=== PATIENT | male | born 1960 | race African-American/Black ===

== ENCOUNTER 2016-12-28 07:39 | Day surgery (SDC) | payer MEDICAID ==
[2016-12-17 11:08] VITALS: BP 119/87
[~2016-12-28] VITALS: Ht 185.4 cm; Wt 113.0 kg
[~2016-12-28 07:39] MED LIST: ALPR1TAB2 PO; ASPI-515 PO; BACITRACIN 50,000 UNIT ONE; BUPIVACAINE/PF 0.25% ONE; BUPIVACAINE/PF 0.5% ONE; BUPIVACAINE/PF-EPI 0.25% 1:200K ONE; BUPIVACAINE/PF-EPI 0.5% 1:200K ONE; CYCL5TAB PO; HYDR-3240 PO; IBUP200T48 PO; LIDOCAINE 1%-EPI 1:100K, 30ML ONE; LISI-167 PO; METO25TA91 PO; OXYC-229 PO; THROMBIN 5,000 UNIT VIAL TP ONE
[2016-12-28] MEDS ORDERED: LACTATED RINGERS 1,000 ML IV SCH (09:09)
[2016-12-28 09:12] VITALS: BP 119/87
[2016-12-28] MEDS ORDERED: FENTANYL PF 250 MCG/5ML ONE (10:25)
[2016-12-28] MEDS ORDERED: MIDAZOLAM 1 MG/ML, 2ML ONE (10:25)
[2016-12-28] MEDS ORDERED: OXYcodone/APAP 5/325MG TABLET PO PRN (10:30)
[2016-12-28] MEDS ORDERED: PHENYLEPHRINE 10 MG/ML ONE (10:39)
[2016-12-28] MEDS ORDERED: CEFAZOLIN 1,000 MG ONE (10:39)
[2016-12-28] MEDS ORDERED: PROPOFOL 10 MG/ML, 20ML ONE (10:39)
[2016-12-28] MEDS ORDERED: DEXAMETHASONE 4 MG/ML, 5ML ONE (10:39)
[2016-12-28] MEDS ORDERED: ROCURONIUM 10 MG/ML ONE (10:39)
[2016-12-28] MEDS ORDERED: METOCLOPRAMIDE 5 MG/ML, 2ML ONE (10:39)
[2016-12-28] MEDS ORDERED: ONDANSETRON 2MG/ML, 2ML ONE (10:39)
[2016-12-28] MEDS ORDERED: FENTANYL PF 100 MCG/2ML ONE ×2 (11:13→12:40)
[2016-12-28] MEDS ORDERED: MEPERIDINE/PF 25MG/0.5ML IVPush PRN (11:30)
[2016-12-28] MEDS ORDERED: MIDAZOLAM 1 MG/ML, 2ML IV PRN (11:30)
[2016-12-28] MEDS ORDERED: hydrALAzine 20 MG/ML, 1ML IV PRN (11:30)
[2016-12-28] MEDS ORDERED: HYDROmorphone 1 MG/ML, 1ML IV PRN (11:30)
[2016-12-28] MEDS ORDERED: EPHEDRINE 50 MG/ML, 1ML IVPush PRN (11:30)
[2016-12-28] MEDS ORDERED: LABETALOL 5MG/ML, 20ML IV PRN (11:30)
[2016-12-28] MEDS ORDERED: METOPROLOL 1 MG/ML, 5ML IV PRN (11:30)
[2016-12-28] MEDS ORDERED: ONDANSETRON 2MG/ML, 2ML IVPush PRN (11:30)
[2016-12-28] MEDS ORDERED: PROMETHAZINE 25 MG/ML, 1ML IV PRN (11:30)
[2016-12-28] MEDS ORDERED: OXYcodone 5 MG/5 ML ORAL.SOL UDC PO PRN (11:30)
[2016-12-28] MEDS ORDERED: OXYcodone 5 MG/5 ML ORAL.SOL UDC ONE (12:40)
[2016-12-28] MEDS: FENTANYL PF 100 MCG/2ML IV PRN ×2 (12:42→12:56)
== END 2016-12-28 15:03 | disposition home or self-care (01) ==
LOC: OR 07:39
PROVIDERS: ATTEND Orthopaedic Surgery Orthopaedic Surgery of the Spine
DX: M48.07 Spinal stenosis, lumbosacral region (principal); M54.17 Radiculopathy, lumbosacral region; I10 Essential (primary) hypertension; E66.01 Morbid (severe) obesity due to excess calories; Z68.32 Body mass index [BMI] 32.0-32.9, adult; G47.33 Obstructive sleep apnea (adult) (pediatric); E78.5 Hyperlipidemia, unspecified; F41.9 Anxiety disorder, unspecified; M81.0 Age-related osteoporosis without current pathological fracture; Z80.1 Family history of malignant neoplasm of trachea, bronchus and lung; Z82.49 Family history of ischemic heart disease and other diseases of the circulatory system; Z72.89 Other problems related to lifestyle
CPT/HCPCS: 36415; 63030; 72100; 85651; J0690; J1100; J2370; J2405; J2704; J2765; J3010; J3490; J7120; J2250

== ENCOUNTER 2019-03-26 08:57 | Emergency (ER) | payer MEDICAID ==
[~2019-03-26] VITALS: Ht 182.9 cm; Wt 107.8 kg
[~2019-03-26 08:57] MED LIST changes: -BACITRACIN 50,000 UNIT ONE; -BUPIVACAINE/PF 0.25% ONE; -BUPIVACAINE/PF 0.5% ONE; -BUPIVACAINE/PF-EPI 0.25% 1:200K ONE; -BUPIVACAINE/PF-EPI 0.5% 1:200K ONE; -IBUP200T48 PO; +IBUP200T49 PO; -LIDOCAINE 1%-EPI 1:100K, 30ML ONE; -OXYC-229 PO; +OXYC-307 PO; -THROMBIN 5,000 UNIT VIAL TP ONE
[2019-03-26 09:07] VITALS: BP 138/98
[2019-03-26] MEDS ORDERED: KETOROLAC 30 MG/1 ML IM ONE (10:30)
[2019-03-26] MEDS ORDERED: DIAZEPAM 5 MG TABLET PO ONE (10:30)
[2019-03-26] MEDS ORDERED: HYDROmorphone 2 MG/ML, 1ML IM PRN (10:30)
[2019-03-26] MEDS ORDERED: KETOROLAC 60 MG/2 ML ONE (11:20)
[2019-03-26] MEDS ORDERED: DIAZEPAM 5 MG TABLET ONE (11:21)
[2019-03-26] MEDS ORDERED: HYDROmorphone 2 MG/ML, 1ML ONE (11:21)
== END 2019-03-26 11:54 | disposition home or self-care (01) ==
LOC: ED 11:09
DX: M54.41 Lumbago with sciatica, right side (principal); I10 Essential (primary) hypertension; E78.00 Pure hypercholesterolemia, unspecified
CPT/HCPCS: 96372; 99283; J1170; J1885; J7512

== ENCOUNTER 2019-05-10 09:52 | Emergency (ER) | payer MEDICAID ==
[~2019-05-10] VITALS: Ht 182.9 cm; Wt 102.8 kg
[2019-05-10 09:53] VITALS: BP 167/80
[2019-05-10] MEDS ORDERED: KETOROLAC 30 MG/1 ML ONE (10:51)
[2019-05-10] MEDS ORDERED: DIAZEPAM 5 MG TABLET ONE (10:51)
[2019-05-10] MEDS ORDERED: KETOROLAC 30 MG/1 ML IM ONE (11:00)
[2019-05-10] MEDS ORDERED: DIAZEPAM 5 MG TABLET PO ONE (11:00)
--- NOTE | 2019-05-10 11:07 | NUR ---
MEDS GIVEN PER ERP ORDER FOR 8/10 PAIN TO LOW BACK, R HIP, RLE. PT STATES PAIN GOES UP TO 10/10 WITH MOVEMENT OR TRYING TO STAND.
== END 2019-05-10 11:58 | disposition home or self-care (01) ==
LOC: ED 10:19
DX: S22.089A Unspecified fracture of T11-T12 vertebra, initial encounter for closed fracture (principal); S39.012A Strain of muscle, fascia and tendon of lower back, initial encounter; G89.11 Acute pain due to trauma; F41.1 Generalized anxiety disorder; I10 Essential (primary) hypertension; X58.XXXA Exposure to other specified factors, initial encounter; Y93.89 Activity, other specified; Y92.89 Other specified places as the place of occurrence of the external cause; Y99.8 Other external cause status
CPT/HCPCS: 72110; 96372; 99283; J1885